=== PATIENT | male | born 1955 | race Caucasian/White ===

== ENCOUNTER 2024-02-16 06:19 | Day surgery (SDC) | payer BC, MEDICARE ==
[2024-02-10 15:42] VITALS: BMI 32.5
[2024-02-16] MEDS ORDERED: MIDAZOLAM HCL 2 MG/2 ML SINGLE DOSE VIAL ONE (07:17)
[2024-02-16] MEDS ORDERED: PROPOFOL 40 ML ONE (07:17)
[2024-02-16] MEDS ORDERED: TETRACAINE 0.5% OPHTH SOLN 2 ML BOTTLE ONE (07:18)
[2024-02-16] MEDS ORDERED: LIDOCAINE 1%/EPI 1:100000 (20 ML MULTI DOSE VIAL) ONE (07:18)
[2024-02-16] MEDS ORDERED: THROMBIN (BOVINE) 5,000 UNIT VIAL TP ONE (07:18)
[2024-02-16] MEDS ORDERED: ERYTHROMYCIN 0.5% OPHTHALMIC OINTMENT 3.5 GM TUBE ONE (07:18)
[2024-02-16] MEDS ORDERED: BUPIVACAINE HCL/PF 0.5% (5MG/ML) 10 ML VIAL ONE (07:18)
[2024-02-16] MEDS ORDERED: ceFAZolin SODIUM 1 GM VIAL ONE (07:18)
[2024-02-16] MEDS ORDERED: LIDOCAINE HCL/PF 2% SDV 5ML VIAL ONE (07:39)
[2024-02-16] MEDS ORDERED: ONDANSETRON 4 MG/2 ML VIAL ONE ×2 (08:15→09:53)
[2024-02-16] MEDS ORDERED: DEXAMETHASONE SOD PHOSPHATE 4 MG/1 ML VIAL ONE (08:15)
[2024-02-16] MEDS ORDERED: PROPOFOL 20 ML ONE (08:42)
[2024-02-16] MEDS ORDERED: oxyCODONE HCL 5 MG TABLET PO PRN (10:14)
[2024-02-16] MEDS ORDERED: ONDANSETRON 4 MG/2 ML VIAL IVPUSH PRN (10:14)
[2024-02-16] MEDS ORDERED: LACTATED RINGERS SOLUTION 1,000 ML IV SCH (10:15)
[2024-02-16 11:39] VITALS: PULSE 88; TEMP 97.3
[2024-02-16 12:14] VITALS: BP 145/90; RESP 16
== END 2024-02-16 12:35 | disposition home or self-care (01) ==
LOC: FASU 06:19
PROVIDERS: ATTEND Ophthalmology
PROC: 0HX1XZZ Transfer Face Skin, External Approach (ICD-10-PCS; 2024-02-16)
PROC: 08QQXZZ Repair Right Lower Eyelid, External Approach (ICD-10-PCS; 2024-02-16)
PROC: 08QNXZZ Repair Right Upper Eyelid, External Approach (ICD-10-PCS; 2024-02-16)
PROC: 08R Eye, Replacement (ICD-10-PCS; principal; 2024-02-16 08:09)
DX: H02.89 Other specified disorders of eyelid (principal); M95.2 Other acquired deformity of head; Z85.828 Personal history of other malignant neoplasm of skin
CPT/HCPCS: 94760